=== PATIENT | male | born 1950 | race Caucasian/White ===

== ENCOUNTER → 2017-08-04 | Outpatient (CLI) | payer OTHER ==
[2017-08-04 08:30] LABS: CREATININE 1.2 mg/dL (0.7-1.3)
== END ==
LOC: CAT 07:52
PROVIDERS: Internal Medicine Cardiovascular Disease
DX: Z01.812 Encounter for preprocedural laboratory examination (principal); I77.810 Thoracic aortic ectasia

== ENCOUNTER → 2019-07-28 | Outpatient (CLI) | payer OTHER ==
[~2019-07-28] VITALS: Ht 185.4 cm; Wt 82.3 kg
[~2019-07-28] MED LIST: CENTRUM SILVER1 EAC4; COZAAR 25 MG TA25 M1 PO; FEXOFENADINE H180 MG PO; FLOMAX0.4 MG PO; FLONASE 0.05%50 MCG NASAL; MELATONIN1 MG PO; PRAVACHOL20 MG PO
[2019-07-28 07:13] LABS: HEMATOCRIT 44.1 % (42.0-52.0); HEMOGLOBIN 14.3 gm/dL (14.0-18.0); MCH 30.3 pg (26.0-34.0); MCHC 32.5 g/dL (28.0-37.0); MCV 93.2 fL (80.0-100.0); RBC 4.73 mil/uL (4.50-6.00); RDW 13.3 % (10.5-14.5); WBC 4.7 thou/uL (4.0-11.0)
[2019-07-28 07:18] VITALS: BP 156/77
[2019-07-28 07:24] LABS: CALCIUM 9.6 mg/dL (8.5-10.1); CREATININE 1.2 mg/dL (0.7-1.3); POTASSIUM 3.3 mmol/L (3.5-5.1)
[2019-07-28 07:27] LABS: PROTIME 10.6 Seconds (9.3-11.4)
--- NOTE | 2019-07-28 09:30 | TEE ---
[facility] [address] [place] [address] TRANSESOPHAGEAL ECHOCARDIOGRAM Name: SIDDHARTH TOLLIVER Room #: REG [facility] [id number] ������������� Admission: 07/28/19 ������������� Attend Phys: Saturnino Rees, Discharge: ��� ������������� ��� Date of : 46 Date of Service: 07/28/19 0929 �� Report #: [id number] �������� ��������������������������������������������[id number] THIS REPORT FOR: //name// APPROVED REPORT Study performed: 07/28/2019 07:57:29 EXAM: Transesophageal Echocardiogram Patient Location: Out-Patient Status: routine BSA: 2.07 HR: 78 bpm BP: 138/76 mmHg Rhythm: NSR Other Information Study Quality: Good Indications Mitral Valve Prolaspe, Mitral Regurgitation. Echo Enhancing Agent Indication: Rule out Shunt Agent(s) / Amount(s) Used: Agitated Saline 6 cc Procedure After obtaining informed consent, patient underwent transesophageal echo in the [employer]. Type of Sedation : Conscious Sedation Sedation was administered by Bobby Ashraf RN. Versed (5) Fentanyl (100) Transesophageal probe was inserted and advanced into esophagus without difficulty by Omar Fernandes MD. Echo enhancement indication: R/O Septal defect. The AWILDA was performed without complications. Throughout the procedure, the blood pressure, pulse oximetry, cardiac rhythm, and rate were monitored. The patient tolerated the procedure without adverse effects. Recovery from conscious sedation was uneventful and vital signs were stable. Left Ventricle Left ventricle is borderline dilated. There is normal LV segmental wall motion. There is normal left ventricular wall thickness. Left ventricular systolic function is normal. LVEF is 60-65%. [facility] [address] [place] [address] TRANSESOPHAGEAL ECHOCARDIOGRAM Name: SIDDHARTH TOLLIVER Room #: REG FEI Thomas#: [id number] ������������� Admission: 07/28/19 ������������� Attend Phys: Saturnino Rees, Discharge: ��� ������������� ��� Date of : 46 Date of Service: 07/28/19 0929 �� Report #: [id number] �������� ��������������������������������������������[id number] Right Ventricle The right ventricle is normal size. The right ventricular systolic function is normal. Atria Left atrium is mildly dilated. No thrombus is visualized in the left atrium or appendage. No shunting by contrast bubble injection. The right atrium size is normal. Aortic Valve The aortic valve is normal in structure. No aortic regurgitation is present. There is no aortic valvular stenosis. Mitral Valve Posterior mitral leaflet prolapse Severe, eccentric mitral regurgitation. No evidence of mitral valve stenosis. Tricuspid Valve The tricuspid valve is normal in structure. Trace tricuspid regurgitation. Pulmonic Valve The pulmonary valve is normal in structure. There is no pulmonic valvular regurgitation. Great Vessels The aortic root is normal in size. Ascending aorta is dilated (4.3cm) IVC is normal in size and collapses >50% with inspiration. Pericardium There is no pericardial effusion. Critical Notification Physician Notified Date: 07/28/2019 <Conclusion> Left ventricular systolic function is normal. There is normal LV segmental wall motion. LVEF is 60-65%. Left atrium is mildly dilated. No thrombus is visualized in the left atrium or appendage. No shunting by contrast bubble injection. The aortic valve is normal in structure. No aortic regurgitation or [facility] [address] [place] [address] TRANSESOPHAGEAL ECHOCARDIOGRAM Name: KENNYBAMBISIDDHARTHMATHEW PLUNKETT Room #: REG [facility]#: [id number] ������������� Admission: 07/28/19 ������������� Attend Phys: Saturnino Rees, Discharge: ��� ������������� ��� Date of : 46 Date of Service: 07/28/19928 �� Report #: [id number] �������� ��������������������������������������������[id number] stenosis Posterior mitral leaflet prolapse. Severe, eccentric mitral regurgitation. Ascending aorta is dilated (4.5cm) There is no pericardial effusion. ��������������������������������������������� <ELECTRONICALLY SIGNED> ���������������������������������������� By: Omar Fernandes MD, [facility] ��������������������������������������������� 07/28/19928 8 8 Omar Fernandes MD, FAC /INF
--- NOTE | 2019-08-02 16:58 | CATHLAB ---
[facility] [address] [place] [address] INVASIVE PROCEDURE REPORT Name: SIDDHARTH TOLLIVER Room #: REG Martha#: [id number] ������������� Admission: 07/28/19 ������������� Attend Phys: Saturnino Rees, Discharge: ��� ������������� ��� Date of : 46 �������������������� �� Report #: [id number] �������� ��������������������������������������������[id number] THIS REPORT FOR: //name// APPROVED REPORT Study performed: 07/28/2019 09:46:06 Patient Details Patient Status: Out-Patient Room #: The patient is a 69 year-old male Event Personnel Saturnino Rees [employer] Machine Operator, Ramin Rich RN RN, Sheila Mcgee RN RN, Shanice Patterson RTR Monitor, Josselin Darling RTR, ENGINEERING CONSULTANT Monitor, Cj Womack Procedures Performed Art Access - R femoral artery* 67061 Initial Mod Sed Same Phys/QHP Gr5y 242260 17784 Mod Sed Same Phys/QHP Ea 571381 Right and Left Heart Cath w/or w/o Coronarie [id number] [facility] [place] Access - R femoral vein Hemostasis w/ Mynx Indication Chest pain Procedure Narrative The Right Groin^ was infiltrated with 1% Lidocaine subcutaneous anesthesia. A Right Heart Catheterization was performed with a 7 Fr. [place]-Joe catheter and pressure were recorded. Cardiac outputs were obtained by the Thermal Dilution method. A PINNACLE 6FR Sheath #[id number] sheath was inserted into the RFA^. Coronary angiography was performed using coronary diagnostic catheters. The right coronary system was accessed and visualized with a JR4 catheter. The left coronary system was accessed and visualized with a JL4 catheter. The left ventricle was accessed and visualized with a Pigtail catheter. Left ventriculogram was performed in 30 degree projection. An aortogram of the abdominal aorta was performed. Pre-demployment femoral angiogram was performed . Closure device was deployed with a Fr MYNXGRIP 6/7F #[id number]. Hemostasis was obtained with manual pressure following sheath removal without any complications. The patient tolerated the procedure well and there were no complications associated with the procedure. There was no hematoma. Intraoperative Conscious Sedation Sedation start time: 9:54 Case end Time: [address] [address] INVASIVE PROCEDURE REPORT Name: SIDDHARTH TOLLIVER Room #: REG FEI Thomas#: [id number] ������������� Admission: 07/28/19 ������������� Attend Phys: Saturnino Rees, Discharge: ��� ������������� ��� Date of : 46 �������������������� �� Report #: [id number] �������� ��������������������������������������������[id number] 10:41 Versed 1 mg Fluoro Time: 5.33 minutes Dose: DAP 4972.20 cGycm2 451 mGy Contrast Type and Amount: Omnipaque 115 ml Hemodynamics The right atrial mean pressure is 10 mmHg. The right ventricular pressure is 41/0 mmHg. The pulmonary artery pressure is 29/14 mmHg with a mean of 21 mmHg. The mean pulmonary capillary wedge pressure is 15 mmHg. The aortic pressure is 172/74 mmHg with a mean of 108 mmHg. The left ventricular pressure is 141/5 mmHg with a mean of mmHg. The left ventricular end diastolic pressure is 20 mmHg. The cardiac output using thermo method is 8.45 L/min. The cardiac index using thermo method is 4.08 L/min/m2. Conclusion #1 hyperdynamic LV function with severe mitral insufficiency 4+. #2 normal coronary anatomy and a right dominant system. There is no occlusive or obstructive coronary disease. #3 abdominal aortogram revealed mild aortic tortuosity no aneurysm formation renal arteries and iliac system widely patent. #4 successful right heart catheterization with hemodynamics noted above. ��������������������������������������������� <ELECTRONICALLY SIGNED> ���������������������������������������� By: Saturnino Rees MD, FACC ��������������������������������������������� 08/02/191656 56 56 Saturnino Rees MD, FACC /INF
== END | disposition home or self-care (01) ==
LOC: CATH 06:26
PROVIDERS: Internal Medicine Cardiovascular Disease
DX: R07.9 Chest pain, unspecified (principal); I08.1 Rheumatic disorders of both mitral and tricuspid valves; I77.811 Abdominal aortic ectasia; E78.5 Hyperlipidemia, unspecified; Z98.890 Other specified postprocedural states; Z79.899 Other long term (current) drug therapy; Z88.8 Allergy status to other drugs, medicaments and biological substances

== ENCOUNTER 2019-07-30 17:13 | Emergency (ER) | payer BC, OTHER ==
[~2019-07-30] VITALS: Ht 182.9 cm; Wt 74.8 kg
--- NOTE | ~2019-07-30 | EKG ---
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
[2019-07-30 17:55] LABS: ABSOLUTE NEUTROPHILS 2.9 thou/uL (1.4-8.2); BASOPHILS 0.8 % (0.0-2.0); EOSINOPHILS 1.8 % (0.0-3.0); HEMATOCRIT 42.7 % (42.0-52.0); LYMPHOCYTES 31.8 % (24.0-44.0); MCH 30.7 pg (26.0-34.0); MCHC 32.9 g/dL (28.0-37.0); MCV 93.3 fL (80.0-100.0); MONOCYTES 10.3 % (1.0-8.0); PLATELET COUNT 151 thou/uL (150-400); POLYS 55.3 % (36.0-66.0); RBC 4.57 mil/uL (4.50-6.00); RDW 13.2 % (10.5-14.5); WBC 5.2 thou/uL (4.0-11.0)
[2019-07-30 18:00] LABS: ANION GAP 8 mmol/L (7-16); BUN 24 mg/dL (7-18); CHLORIDE 102 mmol/L (98-107); CO2 30 mmol/L (21-32); CREATININE 1.1 mg/dL (0.7-1.3); GLUCOSE 105 mg/dL (74-106); POTASSIUM 3.6 mmol/L (3.5-5.1); SODIUM 140 mmol/L (136-145)
[2019-07-30 18:11] LABS: ALBUMIN 4.2 g/dL (3.4-5.0); SGOT 17 U/L (15-37); SGPT 23 U/L (30-65); TOTAL BILIRUBIN 0.6 mg/dL (<0.1-1.0); TOTAL PROTEIN 7.6 g/dL (6.4-8.2); TROPONIN-I <0.06 ng/mL (<0.06)
[2019-07-30 18:26] LABS: APTT 26.7 Seconds (24.5-32.8); PROTIME 10.4 Seconds (9.3-11.4)
[2019-07-30 20:56] VITALS: BP 154/74
--- NOTE | 2019-08-01 08:00 | EKG ---
[address] [address] ELECTROCARDIOGRAM REPORT Name: SIDDHARTH TOLLIVER Room [facility]: [facility] SERVICES[facility]manuel[facility] [id number] ������������������ Admission: 07/30/19 ������������������ Attend Phys: Discharge: 07/30/19 ������������������ Date of : 46 Report #: [id number] ����������������������������������������������������������������� [id number] THIS REPORT FOR: //name// [facility] ED Test Date: 2019-07-30 Test Time: 17:50:24 Pat Name: SIDDHARTH TOLLIVER Department: Room: Gender: M Welfare Interviewer: : 1950 Requested By: Agusto Moctezuma Order Number: [id number] MD: Jed Merino Measurements Intervals [place] Rate: 72 P: [place]: QRS: -12 QRSD: 97 T: 19 QT: 389 QTc: 426 Interpretive Statements Normal sinus rhythm Anteroseptal infarct, old No previous ECG available for comparison Electronically Signed On 08-01-2019 8:00:24 CDT by Jed Merino [email or web address] ��������������������������������������������� <ELECTRONICALLY SIGNED> ���������������������������������������� By: Jed Merino MD ��������������������������������������������� 08/01/19 0800 175 1750 MD LONDON Cabrera
== END 2019-07-30 20:56 | disposition home or self-care (01) ==
LOC: ER 17:13
PROVIDERS: Emergency Medicine
DX: L76.32 Postprocedural hematoma of skin and subcutaneous tissue following other procedure (principal); R33.9 Retention of urine, unspecified; E78.5 Hyperlipidemia, unspecified; I71.4 Abdominal aortic aneurysm, without rupture; Z88.6 Allergy status to analgesic agent; Y83.8 Other surgical procedures as the cause of abnormal reaction of the patient, or of later complication, without mention of misadventure at the time of the procedure; Y71.3 Surgical instruments, materials and cardiovascular devices (including sutures) associated with adverse incidents; Y92.89 Other specified places as the place of occurrence of the external cause